=== PATIENT | male | born 1970 | race Caucasian/White ===

== ENCOUNTER 2017-07-11 13:09 | Inpatient (IN) | payer OTHER ==
[2017-07-11] VITALS (7 sets, daily range): BP systolic 156–220; BP diastolic 87–116; PULSE 84–107; RESP 20–26; TEMP 97.8–99.5; O2SAT 95–96
[~2017-07-11] VITALS: Ht 180.3 cm; Wt 181.4 kg
[~2017-07-11 13:09] MED LIST: AMLO10 PO; CLON.2 PO; FURO1TAB93 PO; LISI-360 PO; MEDR4PAK3 PO; OXYC5 PO; PANT40IN3 PO; SHOWER/TUB CHAIR LG; Z.0.WALKERBAR
[2017-07-11] MEDS ORDERED: chlordiazePOXIDE 25 MG CAP PO STA (14:44)
[2017-07-11] MEDS ORDERED: ONDANSETRON HCL 4 MG/2 ML VIAL IVP ONE (14:45)
[2017-07-11] MEDS ORDERED: LORazepam 2 MG/ML VIAL IV PUSH ONE (14:45)
[2017-07-11] MEDS ORDERED: SODIUM CHLORIDE 0.9% FLUSH 10 ML FLUSH IVF PRN (14:45)
[2017-07-11] MEDS ORDERED: PANTOPRAZOLE SODIUM 40 MG VIAL IVP ONE (14:45)
--- NOTE | 2017-07-11 14:55 | PD ---
HPI Chief Complaint: Chest Pain Time Seen by Provider: 14:49 Travel History International Travel<30 days: No Contact w/Intl Traveler<30days: No Traveled to known affect area: No History of Present Illness HPI Patient comes in complaining of left-sided chest pain that is throbbing like in nature began earlier this morning. Patient states that he is an alcoholic drinking 3-6 L of vodka a day. Patient states he use to drink beer by the case , but found out vodka was cheaper to get drunk on. Patient states he was trying to detox himself and last had a drink around noon yesterday. Patient states he started feeling sick and shaky and had his friend get him a pint of vodka which he drank about three quarters of around noon today seemed to help his symptoms some. Patient states over the past 6 months when he doesn't drink a starts getting sick she starts to dry heave and has noticed some blood-tinged spots in the sputum. Patient denies any large amount of blood in the vomit. Patient states that over the past months he said hoop coiler color stools but contributes this to trying to eat more vegetables. Patient reports associated shortness of breath with the chest pain today that is worse with exertion. Patient has a history of hypertension and COPD but denies taking any medications for this. Patient states he did take a Lasix today they had prescribed 6 months ago to help with the swelling in his legs. Patient reports he feels a swelling in his legs getting progressively worse. PFSH Past Medical History Arthritis: Yes Heart Rhythm Problems: No Cancer: No Cardiovascular Problems: Yes High Cholesterol: No Chest Pain: Yes Congestive Heart Failure: Yes Endocrine: No Gastrointestinal Disorders: Yes Genitourinary: No Hypertension: Yes Musculoskeletal: Yes Neurologic: No Psychiatric: No Reproductive: No Respiratory: Yes (COPD) Past Surgical History Other Surgery: Yes Social History Alcohol Use: Yes (1 pint of vodka) Tobacco Use: No Substance Use: Yes (MARIJUANA. ) Allergies-Medications (Allergen,Severity, Reaction): Coded Allergies: lisinopril (Unverified Allergy, Severe, RASHES, 07/11/17) Reported Meds & Prescriptions Reported Meds & Active Scripts Active No Active Prescriptions or Reported Medications Review of Systems Except as stated in HPI: all other systems reviewed are Neg Physical Exam Narrative GENERAL: Well-developed, overly nourished, in no acute distress, and non-ill appearing. SKIN: Focused skin assessment warm and dry. HEAD: Atraumatic. Normocephalic. EYES: Pupils equal and round. EOMI. No scleral icterus. No injection or drainage. ENT: No nasal bleeding or discharge. Mucous membranes pink and moist. NECK: Trachea midline. Supple. No nuclear rigidity. CARDIOVASCULAR: Regular rate and rhythm. No murmur appreciated. RESPIRATORY: No accessory muscle use. No respiratory distress. Decreased breath sounds throughout. GASTROINTESTINAL: Abdomen soft, non-tender, distended, and no guarding. Hepatic and splenic margins not palpable. Normal bowel sounds 4. No pulsatile mass. Umbilical hernia noted. MUSCULOSKELETAL: No obvious deformities. No clubbing. No cyanosis. 2+ edema bilateral lower extremities. Full range of motion. NEUROLOGICAL: Awake and alert. No obvious cranial nerve deficits. Motor grossly within normal limits. Normal speech. PSYCHIATRIC: Appropriate mood and affect; insight and judgment normal. Data Data Last Documented VS Vital Signs Date Time Temp Pulse Resp B/P Pulse Ox O2 Delivery O2 Flow Rate FiO2 07/11/17 16:05 85 21 173/93 96 Nasal Cannula 2 07/11/17 14:53 98.3 Orders Electrocardiogram (07/11/17 ) B-Type Natriuretic Peptide (07/11/17 14:44) Ckmb (Isoenzyme) Profile (07/11/17 14:44) Complete Blood Count With Diff (07/11/17 14:44) Magnesium (Mg) (07/11/17 14:44) Prothrombin Time / Inr (Pt) (07/11/17 14:44) Act Partial Throm Time (Ptt) (07/11/17 14:44) Troponin I (07/11/17 14:44) Chest, Single Ap (07/11/17 14:44) Ecg Monitoring (07/11/17 14:44) Bilateral Bp Monitoring (07/11/17 14:44) Iv Access Insert/Monitor (07/11/17 14:44) Oximetry (07/11/17 14:44) Oxygen Administration (07/11/17 14:44) Sodium Chloride 0.9% Flush (Ns Flush) (07/11/17 14:45) Comprehensive Metabolic Panel (07/11/17 14:44) Lipase (07/11/17 14:44) Alcohol (Ethanol) (07/11/17 14:44) Ondansetron Inj (Zofran Inj) (07/11/17 14:45) Pantoprazole Inj (Protonix Inj) (07/11/17 14:45) Chlordiazepoxide (Librium) (07/11/17 14:44) Lorazepam Inj (Ativan Inj) (07/11/17 14:45) CKMB (07/11/17 15:00) CKMB% (07/11/17 15:00) Admit Order (Ed Use Only) (07/11/17 18:10) Labs Laboratory Tests Test 07/11/17 15:00 White Blood Count 5.7 TH/MM3 Red Blood Count 4.13 MIL/MM3 Hemoglobin 14.2 GM/DL Hematocrit 42.3 % Mean Corpuscular Volume 102.4 FL Mean Corpuscular Hemoglobin 34.4 PG Mean Corpuscular Hemoglobin 33.6 % Concent Red Cell Distribution Width 13.0 % Platelet Count 119 TH/MM3 Mean Platelet Volume 8.7 FL Neutrophils (%) (Auto) 76.2 % Lymphocytes (%) (Auto) 14.7 % Monocytes (%) (Auto) 7.6 % Eosinophils (%) (Auto) 0.9 % Basophils (%) (Auto) 0.6 % Neutrophils # (Auto) 4.3 TH/MM3 Lymphocytes # (Auto) 0.8 TH/MM3 Monocytes # (Auto) 0.4 TH/MM3 Eosinophils # (Auto) 0.1 TH/MM3 Basophils # (Auto) 0.0 TH/MM3 CBC Comment DIFF FINAL Differential Comment Prothrombin Time 11.4 SEC Prothromb Time International 1.0 RATIO Ratio Activated Partial 29.8 SEC Thromboplast Time Sodium Level 139 MEQ/L Potassium Level 3.4 MEQ/L Chloride Level 103 MEQ/L Carbon Dioxide Level 26.8 MEQ/L Anion Gap 9 MEQ/L Blood Urea Nitrogen 7 MG/DL Creatinine 0.80 MG/DL Estimat Glomerular Filtration 104 ML/MIN Rate Random Glucose 81 MG/DL Calcium Level 8.2 MG/DL Magnesium Level 1.8 MG/DL Total Bilirubin 1.8 MG/DL Aspartate Amino Transf 105 U/L (AST/SGOT) Alanine Aminotransferase 81 U/L (ALT/SGPT) Alkaline Phosphatase 82 U/L Total Creatine Kinase 386 U/L Creatine Kinase MB 5.1 NG/ML Creatine Kinase MB % 1.3 % Troponin I 0.05 NG/ML B-Type Natriuretic Peptide 15 PG/ML Total Protein 8.6 GM/DL Albumin 3.9 GM/DL Lipase 69 U/L Ethyl Alcohol Level 129 MG/DL MDM Medical Decision Making Medical Screen Exam Complete: Yes Emergency Medical Condition: Yes Interpretation(s) EKG reviewed by Dr. Hernandez shows sinus rhythm with ventricular rate of 83. No STEMI. Chest x-ray read by the radiologist shows: Mild cardiomegaly. No acute abnormality. Differential Diagnosis CHF exacerbation, COPD exacerbation. Acute coronary syndrome, GI bleed, electrolyte abnormality, alcohol detox, alcohol withdrawal, pneumonia, pneumothorax, pancreatitis, other Narrative Course Patient seen and examined. IV was established patient's patient property assessment monitor. Patient was given Librium and Ativan for alcohol withdrawal symptoms. Initial laboratory neurological studies were ordered. Discussed patient with Dr. Hernandez, who recommends holding aspirin at this time secondary to possible upper GI bleed. Will await laboratory findings. 1610 patient reassessed resting comfortably in bed in no acute distress. Vital signs are stable. Labs pending. Discussed all findings and plan care of with patient, who reports symptoms improve some after receiving Librium and Ativan. Patient is agreeable for admission for further evaluation of his chest pain. All questions were answered. Physician Communication Physician Communication [id number] Aguilera resident on-call for Dr. Alan, who is agreeable to admit the patient. Diagnosis Primary Impression: Chest pain Qualified Code: R07.9 - Chest pain, unspecified type Additional Impressions: Alcoholism, chronic Alcohol withdrawal Qualified Code: F10.230 - Alcohol withdrawal syndrome without complication Admitting Information Admitting Physician Requests: Observation Scripts No Active Prescriptions or Reported Meds Condition: Stable Anderson Marks Jul 11, 2017 14:55
--- NOTE | 2017-07-11 15:33 | RADRPT ---
EXAM DATE/TIME: 07/11/2017 15:10 [facility] COMPARISON: CHEST SINGLE AP, August 15, 2016, 22:05. INDICATIONS : Chest pain. MEDICAL HISTORY : Congestive heart failure. Chronic obstructive pulmonary disease. SURGICAL HISTORY : None. ENCOUNTER: Initial ACUITY: 1 day PAIN SCORE: 5/10 LOCATION: Bilateral chest FINDINGS: The heart is enlarged. The pulmonary parenchyma is clear. The bony structures are grossly intact. CONCLUSION: 1. Mild cardiomegaly. No acute abnormality. Uliecs Cabello MD on July 11, 2017 at 15:31 Board Certified Radiologist. This report was verified electronically.
[2017-07-11 16:10] LABS: AUTOMATED NEUTROPHIL # 4.3 TH/MM3 (1.8-7.7); BASOPHIL % 0.6 % (0.0-2.0); EOSINOPHIL # 0.1 TH/MM3 (0-0.4); EOSINOPHIL % 0.9 % (0.0-4.0); HEMATOCRIT 42.3 % (39.0-51.0); HEMO FLAGS DIFF FINAL; LYMPH % 14.7 % (9.0-44.0); LYMPHOCYTE # 0.8 TH/MM3 (1.0-4.8); MEAN CELL VOLUME 102.4 FL (80.0-100.0); MEAN CORPUSCULAR HEMOGLOBIN 34.4 PG (27.0-34.0); MEAN CORPUSCULAR HGB CONC 33.6 % (32.0-36.0); MONO % 7.6 % (0.0-8.0); NEUT % 76.2 % (16.0-70.0); PLATELET COUNT 119 TH/MM3 (150-450); RED BLOOD COUNT 4.13 MIL/MM3 (4.50-5.90); WHITE BLOOD COUNT 5.7 TH/MM3 (4.0-11.0)
[2017-07-11 16:19] LABS: APTT (PATIENT) 29.8 SEC (24.3-30.1); PROTHROMBIN TIME - PATIENT 11.4 SEC (9.8-11.6)
[2017-07-11 16:32] LABS: ANION GAP 9 MEQ/L (5-15); AST (GOT) 105 U/L (15-37); BICARBONATE 26.8 MEQ/L (21.0-32.0); BLOOD UREA NITROGEN 7 MG/DL (7-18); CHLORIDE 103 MEQ/L (98-107); GLOMERULAR FILTRATION RATE 104 ML/MIN (>89); MAGNESIUM 1.8 MG/DL (1.5-2.5); POTASSIUM 3.4 MEQ/L (3.5-5.1); SODIUM (NA) 139 MEQ/L (136-145)
[2017-07-11 16:33] LABS: ALT (GPT) 81 U/L (12-78)
[2017-07-11 16:36] LABS: ALKALINE PHOSPHATASE 82 U/L (45-117); CREATINE KINASE 386 U/L (39-308); TOTAL BILIRUBIN ADULT 1.8 MG/DL (0.2-1.0)
[2017-07-11 16:38] LABS: ALCOHOL 129 MG/DL (0-5)
[2017-07-11 16:51] LABS: CKMB 5.1 NG/ML (0.5-3.6)
[2017-07-11] MEDS ORDERED: SODIUM CHLORIDE 0.9% FLUSH 10 ML FLUSH IV FLUSH PRN ×2 (18:45→19:15)
--- NOTE | 2017-07-11 19:02 | HHI.HP ---
HPI Service Family Medicine Primary Care Physician No Primary Care Physician Admission Diagnosis chest pain, alcohol withdrawal symptoms Diagnoses: International Travel<30 Days: No Contact w/Intl Traveler<30days: No Known Affected Area: No History of Present Illness Mr. Cabrera is a 46 y/o M with a PMHx of alcoholism, CHF, and HTN presents to the ER with chest pain. He states that the pain has been throbbing since this morning and rates the pain at an 8/10 on the pain scale. He reports that he has had a "mild heart attack," but the pain today is much worse. The pain is primarily located on the left side and feels like a "throbbing pressure." He endorses some blurry vision, headaches, dizziness, and intermittent palpitations. Of note he has an extensive alcohol abuse history including a hospitalization of approximately 2 months due to severe alcohol withdrawal. During his hospitalization he suffered a tonic-clonic seizures and required intubation/tracheotomy due to respiratory failure during his withdrawal. Currently he reports that he drinks 4-5 L of vodka or 99 proof alcohol per day. Today he has had approximately 3/4 of a pint of vodka prior to presenting to the emergency department. Patient states that he is worried that he is going into withdrawal now and knows that his anger control can become a problem when he withdraws from alcohol. His only other complaint is shortness of breath which he states started approximately 8 months ago. His shortness of breath is exacerbated by exertion and is so debilitating he has not been leaving his house for at least 6 months. Over this time he states that he has had a productive cough with white sputum and occasional red/brown specks of blood. He does use a CPAP machine at night, however he is unaware of his settings. Otherwise he has no complaints and denies any fevers, chills, shortness of breath, chest pain, NVD, abdominal pain, or calf tenderness. Review of Systems Constitutional: DENIES: Fever, Dizziness Eyes: COMPLAINS OF: Blurred vision Ears, nose, mouth, throat: DENIES: Throat pain Respiratory: COMPLAINS OF: Cough, Shortness of breath Cardiovascular: COMPLAINS OF: Chest pain, Dyspnea on Exertion, DENIES: Palpitations Gastrointestinal: COMPLAINS OF: Abdominal pain, Diarrhea, Nausea, Vomiting Genitourinary: COMPLAINS OF: Dysuria Musculoskeletal: COMPLAINS OF: Joint pain, Back pain Integumentary: COMPLAINS OF: Rash Neurologic: COMPLAINS OF: Headache Psychiatric: COMPLAINS OF: Mood changes Past Family Social History Past Medical History Hypertension CHF Low back pain Asthma Sleep apnea Past Surgical History Tracheostomy Back surgery Neck surgery for fractured vertebrae Allergies: Coded Allergies: lisinopril (Unverified Allergy, Severe, RASHES, 07/11/17) Family History Father - unknown Mother - leukemia and was a heavy smoker Sister - PE Social History Lives in [place] by himself and dog. 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 Tobacco - denies history Alcohol - normal day has a minimum of 3L of vodka or 99 proof liquor up to 5L of the same, today had 3/4 of a bottle of vodka Illicit - Marijuana, lasted used 1 month ago, was using all day prior Physical Exam Vital Signs Vital Signs Date Time Temp Pulse Resp B/P Pulse Ox O2 Delivery O2 Flow Rate FiO2 07/11/17 16:05 85 21 173/93 96 Nasal Cannula 2 07/11/17 14:53 98.3 84 21 180/99 95 Room Air 196/116 07/11/17 14:51 95 Room Air 07/11/17 14:51 98.3 84 21 180/99 95 Room Air 07/11/17 14:37 83 21 95 Room Air 07/11/17 13:11 97.8 107 26 220/108 95 Physical Exam GENERAL: Well-nourished, well-developed morbidly obese male lying in bed in mild distress. SKIN: Warm and dry. Left hand with mild swelling and increased pigmentation secondary to suntan. HEENT: Atraumatic, normocephalic with EOMI. PERRLA. Oropharynx clear with no erythema or exudate. No rhinorrhea. No LAD, JVD, or thyroid abnormality appreciated. CARDIOVASCULAR: Regular rate and rhythm without obvious murmurs, gallops, or rubs. RESPIRATORY: Breath sounds equal bilaterally. No increased work of breathing. Crackles at the bilateral bases. GASTROINTESTINAL: Abdomen soft, distended, and mildly tender to palpation in all 4 quadrants. Positive bowel sounds in all 4 quadrants. Umbilical hernia at the midline. No other masses appreciated. MUSCULOSKELETAL: No cyanosis or edema. Strength grossly WNL. 2+ pitting edema of the bilateral lower extremities. NEURO/PSYCH: Afocal. Awake, alert, and oriented x3. Appropriate speech and interaction with examiner. Moderate tremor upon standing bilateral hands. Laboratory Laboratory Tests Test 07/11/17 15:00 White Blood Count 5.7 Red Blood Count 4.13 Hemoglobin 14.2 Hematocrit 42.3 Mean Corpuscular Volume 102.4 Mean Corpuscular Hemoglobin 34.4 Mean Corpuscular Hemoglobin 33.6 Concent Red Cell Distribution Width 13.0 Platelet Count 119 Mean Platelet Volume 8.7 Neutrophils (%) (Auto) 76.2 Lymphocytes (%) (Auto) 14.7 Monocytes (%) (Auto) 7.6 Eosinophils (%) (Auto) 0.9 Basophils (%) (Auto) 0.6 Neutrophils # (Auto) 4.3 Lymphocytes # (Auto) 0.8 Monocytes # (Auto) 0.4 Eosinophils # (Auto) 0.1 Basophils # (Auto) 0.0 CBC Comment DIFF FINAL Differential Comment Prothrombin Time 11.4 Prothromb Time International 1.0 Ratio Activated Partial 29.8 Thromboplast Time Sodium Level 139 Potassium Level 3.4 Chloride Level 103 Carbon Dioxide Level 26.8 Anion Gap 9 Blood Urea Nitrogen 7 Creatinine 0.80 Estimat Glomerular Filtration 104 Rate Random Glucose 81 Calcium Level 8.2 Magnesium Level 1.8 Total Bilirubin 1.8 Aspartate Amino Transf 105 (AST/SGOT) Alanine Aminotransferase 81 (ALT/SGPT) Alkaline Phosphatase 82 Total Creatine Kinase 386 Creatine Kinase MB 5.1 Creatine Kinase MB % 1.3 Troponin I 0.05 B-Type Natriuretic Peptide 15 Total Protein 8.6 Albumin 3.9 Lipase 69 Ethyl Alcohol Level 129 Result Diagram: 07/11/17 1500 07/11/17 1500 Imaging Last 72 hours Impressions Chest X-Ray 07/11/17 1444 Signed Impressions: Service Date/Time: Tuesday, July 11, 2017 15:10 - CONCLUSION: 1. Mild cardiomegaly. No acute abnormality. Ulices Cabello MD Abdomen Ultrasound 07/11/17 0000 Signed Impressions: Service Date/Time: Tuesday, July 11, 2017 19:54 - CONCLUSION: 1. Nonspecific splenomegaly, appears to be increased. 2. Enlarged and fatty infiltrated liver. Duran Kessler MD Assessment and Plan Assessment and Plan Mr. Cabrera is a 46 y/o M with a PMHx of alcoholism, CHF, and HTN presents to the ER with chest pain and alcohol withdrawal. Code Status FULL CODE Discussed Condition With JUNI Bell Problem List: (1) Alcohol withdrawal Status: Acute Plan: Patient with long history of alcohol abuse and prior hospitalization for withdrawal. Currently presenting in withdrawal. Patient admits to drinking 4-5 L of vodka per day. CIWA Ativan per protocol Continue to monitor, low threshold to consult draw furnace tender/transfer to ICU for further monitoring and possible Precedex drip. Indicated Librium given once in ER Rally pack ordered (2) Chest pain Status: Acute Plan: Patient admitted for acute onset of chest pain with prior history of CT EKG: Normal sinus rhythm with heart rate of 83. Normal intervals. No signs of ST depression/elevation or bundle sonia block. Per medical team.. Repeat 2 Troponins: 0.05, 2 pending CK: 386, 2 pending Nitroglycerin when necessary for chest pain (3) CHF exacerbation Status: Acute Plan: Patient with history of CHF presenting with increasing shortness of breath and increasing peripheral edema Chest x-ray: Mild cardiomegaly, no acute abnormality Repeat echocardiogram ordered, previous echo showed an EF of 55-65% with no regional wall abnormalities. (06/2016) BMP: 15 Lasix 40 mg IV given once in ER Incentive spirometer DuoNeb nebs when necessary for shortness of breath (4) Elevated liver enzymes Status: Acute Plan: Patient being admitted with elevated AST and ALT complaining of abdominal pain with history of ascites concerning for possible SBP per EMR Complete abdominal ultrasound: Nonspecific splenomegaly, appears to be increased. Enlarged and fatty liver infiltration. Lasix 40 mg IV given once in ER Hepatitis profile ordered (5) Sleep apnea Status: Chronic Plan: Patient with history of sleep apnea currently using CPAP machine to sleep , however he does not remember his [place] CPAP ordered (6) Nutrition, metabolism, and development symptoms Status: Acute Plan: Diet: Heart healthy diet with 1500 mL fluid restriction and 2 g sodium restriction Fluids: Tolerated by mouth, currently in overload prior exam Electrolytes: Hypokalemia, replaced Prophylaxis: Clonidine when necessary for blood pressure greater than 180/100, DuoNeb when necessary for shortness of breath/wheezing (7) No contraindication to deep vein thrombosis (DVT) prophylaxis Status: Acute Plan: Heparin 5000 units every 8 hours SCD/TEDs Physician Certification 2 Midnight Certification Type: Admission for Inpatient Services Order for Inpatient Services The services are ordered in accordance with Medicare regulations or non- Medicare payer requirements, as applicable. In the case of services not specified as inpatient-only, they are appropriately provided as inpatient services in accordance with the 2-midnight benchmark. Estimated LOS (days): 3 3 days is the estimated time the patient will need to remain in the hospital, assuming treatment plan goals are met and no additional complications. Post-Hospital Plan: Home Problem Qualifiers (1) Alcohol withdrawal: Qualified Code: F10.230 - Alcohol withdrawal syndrome without complication (2) Chest pain: Qualified Code: R07.9 - Chest pain, unspecified type Malachi Aguilera MD R2 Jul 11, 2017 19:02
[2017-07-11] MEDS ORDERED: ACETAMINOPHEN 500 MG CPLT PO PRN (19:15)
[2017-07-11] MEDS ORDERED: ONDANSETRON HCL 4 MG/2 ML VIAL IV PRN (19:15)
[2017-07-11] MEDS ORDERED: LORazepam 2 MG/ML VIAL IV PUSH PRN ×3 (19:15)
[2017-07-11] MEDS ORDERED: RESP: ALBUTEROL 2.5 MG/IPRATROPIUM 0.5 MG NEB (PRN) NEB (19:15)
[2017-07-11] MEDS ORDERED: POTASSIUM CHLORIDE 10 MEQ CONTROLLED RELEASE TAB PO ONE (19:15)
[2017-07-11] MEDS ORDERED: FLUMAZENIL 0.5 MG/5 ML VIAL IV PUSH PRN (19:15)
[2017-07-11] MEDS ORDERED: THIAMINE HCL 100 MG TAB PO SCH (19:15)
[2017-07-11] MEDS ORDERED: NITROGLYCERIN 0.4 MG SL 25 TABS/BTL SL PRN (19:15)
[2017-07-11] MEDS ORDERED: HALOPERIDOL LACTATE 5 MG/ML AMP IM PRN (19:15)
[2017-07-11] MEDS ORDERED: LORazepam 2 MG TAB PO PRN (19:15)
[2017-07-11] MEDS ORDERED: FUROSEMIDE 40 MG/4 ML VIAL IV PUSH ONE (19:15)
--- NOTE | 2017-07-11 20:31 | RADRPT ---
EXAM DATE/TIME: 07/11/2017 19:54 [facility] COMPARISON: US ABDOMEN - COMPLETE, March 29, 2015, 18:41. CT PULMONARY ANGIOGRAM, July 10, 2016, 11:09. ABDOMEN KUB ONLY, July 15, 2016, 7:40. INDICATIONS : Abdominal pain. MEDICAL HISTORY : Chronic obstructive pulmonary disease. Congestive heart failure. Hypertension. Dysuria. Arthri tis. Liver disease. Depression. Alcohol use. SURGICAL HISTORY : C6 surgery. ENCOUNTER: Initial ACUITY: 4-6 months PAIN SCORE: 0/10 LOCATION: Abdomen. MEASUREMENTS: LIVER: COMMON DUCT: Non-visualized RIGHT KIDNEY: 10.4 x 5.7 x 5.2 cm LEFT KIDNEY: 13.1 x 7.7 x 6.1 cm SPLEEN: 21.0 cm length NOT VISUALIZED. cm maximal FINDINGS: LIVER: Enlarged and fatty infiltrated. No focal hepatic lesion seen. COMMON DUCT: No intraluminal mass or stone visualized. GALLBLADDER: Contains no stones, demonstrates no wall thickening or pericholecystic fluid. PANCREAS: The visualized portions are within normal limits. RIGHT KIDNEY: No hydronephrosis, stone or mass. LEFT KIDNEY: No hydronephrosis, stone or mass. SPLEEN: No focal lesion. AORTA: Non aneurysmal. IVC: Within normal limits. CONCLUSION: 1. Nonspecific splenomegaly, appears to be increased. 2. Enlarged and fatty infiltrated liver. Duran Kessler MD on July 11, 2017 at 20:27 Board Certified Radiologist. This report was verified electronically.
[2017-07-11] MEDS: MULTIVITAMINS/MINERALS THERAPEUTIC TAB PO SCH (20:47)
[2017-07-11] MEDS: FOLIC ACID 1 MG TAB PO SCH (20:47)
[2017-07-11] MEDS: THIAMINE INJ 500 MG in SODIUM CHLOR 0.9% 250 ML INJ 250 ML IV SCH (20:48)
[2017-07-11] MEDS: SODIUM CHLORIDE 0.9% FLUSH 10 ML FLUSH IV FLUSH SCH (20:48)
[2017-07-11] MEDS ORDERED: SODIUM CHLORIDE 0.9% FLUSH 10 ML FLUSH IV FLUSH SCH (21:00)
[2017-07-11] MEDS: FAMOTIDINE 20 MG TAB PO SCH (21:32)
[2017-07-11] MEDS: HEPARIN SODIUM - SQ 10,000 UNITS/ML VIAL SQ SCH (21:32)
[2017-07-11] MEDS: LORazepam 2 MG/ML VIAL IV PUSH PRN (22:04)
[2017-07-11 22:10] LABS: CKMB 4.9 NG/ML (0.5-3.6)
[2017-07-12] VITALS (8 sets, daily range): BP systolic 136–206; BP diastolic 75–96; PULSE 70–90; RESP 16–20; TEMP 96.4–98.8; O2SAT 90–99
[2017-07-12] MEDS: cloNIDine HCL 0.1 MG TAB PO PRN (00:42)
[2017-07-12] MEDS: LORazepam 2 MG/ML VIAL IV PUSH PRN ×2 (02:14→08:45)
[2017-07-12] MEDS ORDERED: cloNIDine HCL 0.1 MG TAB PO ONE (02:15)
[2017-07-12] MEDS: HEPARIN SODIUM - SQ 10,000 UNITS/ML VIAL SQ SCH ×3 (03:28→21:39)
[2017-07-12 03:53] LABS: AUTOMATED NEUTROPHIL # 3.7 TH/MM3 (1.8-7.7); BASOPHIL # 0.1 TH/MM3 (0-0.2); BASOPHIL % 1.2 % (0.0-2.0); EOSINOPHIL # 0.1 TH/MM3 (0-0.4); EOSINOPHIL % 2.2 % (0.0-4.0); HEMATOCRIT 39.3 % (39.0-51.0); HEMO FLAGS DIFF FINAL; LYMPH % 12.7 % (9.0-44.0); LYMPHOCYTE # 0.6 TH/MM3 (1.0-4.8); MEAN CELL VOLUME 102.1 FL (80.0-100.0); MEAN CORPUSCULAR HGB CONC 34.3 % (32.0-36.0); MONO % 9.3 % (0.0-8.0); NEUT % 74.6 % (16.0-70.0); PLATELET COUNT 101 TH/MM3 (150-450); RED BLOOD COUNT 3.85 MIL/MM3 (4.50-5.90); RED CELL DISTRIBUTION WIDTH 13.1 % (11.6-17.2); WHITE BLOOD COUNT 4.9 TH/MM3 (4.0-11.0)
[2017-07-12 03:57] LABS: INTERNATIONAL NORMALIZED RATIO 1.1 RATIO; PROTHROMBIN TIME - PATIENT 11.9 SEC (9.8-11.6)
[2017-07-12] MEDS ORDERED: FURO40TA PO (04:11)
[2017-07-12] MEDS ORDERED: PANT40TA3 PO (04:11)
[2017-07-12] MEDS ORDERED: AMLO10 PO (04:11)
[2017-07-12 04:18] LABS: ALT (GPT) 68 U/L (12-78); ANION GAP 3 MEQ/L (5-15); AST (GOT) 81 U/L (15-37); BICARBONATE 33.9 MEQ/L (21.0-32.0); BLOOD UREA NITROGEN 10 MG/DL (7-18); CHLORIDE 101 MEQ/L (98-107); GLOMERULAR FILTRATION RATE 84 ML/MIN (>89); SODIUM (NA) 138 MEQ/L (136-145)
[2017-07-12 04:22] LABS: ALKALINE PHOSPHATASE 75 U/L (45-117); TOTAL BILIRUBIN ADULT 2.5 MG/DL (0.2-1.0)
[2017-07-12] MEDS: THIAMINE INJ 500 MG in SODIUM CHLOR 0.9% 250 ML INJ 250 ML IV SCH ×3 (05:00→23:35)
[2017-07-12] MEDS ORDERED: RESP: ALBUTEROL 2.5 MG/IPRATROPIUM 0.5 MG NEB (PRN) NEB (07:00)
[2017-07-12 07:35] LABS: CKMB 4.1 NG/ML (0.5-3.6)
[2017-07-12] MEDS ORDERED: AMLO5 PO (07:46)
[2017-07-12] MEDS: amLODIPine BESYLATE 5 MG TAB PO SCH (08:45)
[2017-07-12] MEDS: SODIUM CHLORIDE 0.9% FLUSH 10 ML FLUSH IV FLUSH SCH ×2 (08:45→21:49)
[2017-07-12] MEDS: MULTIVITAMINS/MINERALS THERAPEUTIC TAB PO SCH (08:45)
[2017-07-12] MEDS: FAMOTIDINE 20 MG TAB PO SCH ×2 (08:45→21:39)
[2017-07-12] MEDS: FOLIC ACID 1 MG TAB PO SCH (08:45)
--- NOTE | 2017-07-12 10:49 | HHI.DCPOC ---
Discharge Care Plan Diagnosis: (1) Alcohol abuse (2) Alcohol withdrawal (3) Chest pain (4) Elevated blood pressure, situational Goals to Promote Your Health * To prevent worsening of your condition and complications * To maintain your health at the optimal level Directions to Meet Your Goals Take your medications as prescribed Follow your dietary instruction Follow activity as directed Keep your appointments as scheduled Take your immunizations and boosters as scheduled If your symptoms worsen call your PCP, if no PCP go to Urgent Care Center or Emergency Room Smoking is Dangerous to Your Health. Avoid second hand smoke Call the 24-hour hour crisis hotline for domestic abuse at Julius Cortes MD R3 Jul 12, 2017 10:49
--- NOTE | 2017-07-12 11:46 | HHI.FPPN ---
Subjective Remarks Medicine attending note: Patient seen and examined, 46-year-old gentleman who states that he does have history of increased alcohol usage presented to the emergency room with an episode of chest pressure with diaphoresis and a feeling of disorientation. Patient admitted for evaluation of chest pain and the patient stated that he would like to be detoxed for his alcohol. Currently does not have insurance. 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 History of a "heart attack " approximately a year ago. 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 Refer to resident's history and physical for complete discussion of admitting details. Does have a history of obstructive sleep apnea and also his head some shortness of breath not fully explained over the last 1-2 years. Objective Vitals Vital signs noted. Some lability to her blood pressure, initially on presentation hypertensive to 220/108. Gen. appearance: Obese gentleman who is pleasant conversation, oriented and in no acute distress. HEENT: Grossly nonlocalizing. Neck: Increased adiposity, no bruits. Cardiac: S1-S2, no S3 or murmurs. Lungs: Diminished breath sounds clear. Abdomen protuberant: Soft, nontender, difficult to appreciate organomegaly or masses. Extremities: Reflected obesity, intact pedal pulses, extremities are warm and dry. Initial EKG: Diminished voltage, poor R-wave anteriorly area Troponin: Borderline 0.06. Vital Signs Date Time Temp Pulse Resp B/P Pulse Ox O2 Delivery O2 Flow Rate FiO2 07/12/17 09:00 98 BiPAP 40 07/12/17 09:00 98 40 07/12/17 08:00 96.4 88 16 141/86 90 07/12/17 04:00 98.8 83 16 176/84 98 07/12/17 02:01 98.2 90 20 206/96 99 07/12/17 01:40 99 40 07/12/17 01:35 Bi-Pap 07/11/17 22:36 99.5 105 20 156/87 95 07/11/17 21:49 Nasal Cannula 3.00 07/11/17 21:47 100 20 175/90 95 Nasal Cannula 3 07/11/17 19:19 95 20 178/97 95 Nasal Cannula 3 07/11/17 16:05 85 21 173/93 96 Nasal Cannula 2 07/11/17 14:53 98.3 84 21 180/99 95 Room Air 196/116 07/11/17 14:51 95 Room Air 07/11/17 14:51 98.3 84 21 180/99 95 Room Air 07/11/17 14:37 83 21 95 Room Air 07/11/17 13:11 97.8 107 26 220/108 95 I/O 07/11/17 07/11/17 07/11/17 07/12/17 07/12/17 07/12/17 06:59 14:59 22:59 06:59 14:59 22:59 Intake Total 360 ml Output Total 1800 ml 400 ml Balance -1800 ml -40 ml Intake Oral 360 ml Output Urine Total 1800 ml 400 ml # Voids 1 Result Diagram: 07/12/17 0338 07/12/17 0338 A/P Assessment and Plan Clinical assessment complex 46-year-old woman with a disease of alcohol/ substance abuse admitted with chest pain suggestive of an ischemic origin, history of an AK approximately one year ago by history. [facility] records were searched in [place], cannot definitely find evidence of having been hospitalized at this institution with a documented AK. Will go on the patient' s history that there was an event. Initially plans have been made to discharge the patient home after early on evaluation did not suggest cardiac origin however with the return of borderline troponins, slightly elevated CK-MB, history of coronary artery disease and a history of chest pressure on the day prior, decision was made to cancel her planned discharge and have cardiology evaluate the patient prior to discharge plans. Review of the records does indicate the patient had a very complicated admission approximately year ago which did involve alcohol intoxication, he does have a history of DVTs, patient was intubated the time, had a tracheostomy, and prior to the finding of the abnormal labs plans were made for the patient to try to manage and totally taken to bed at [facility] for detox. Patient seen and examined. Case reviewed and discussed with resident team. Agree with plan of care as discussed with me and documented in the resident note. Problem List: (1) Alcohol withdrawal Status: Acute Plan: Patient with long history of alcohol abuse and prior hospitalization for withdrawal. Currently presenting in withdrawal. Patient admits to drinking 4-5 L of vodka per day. CIWA Ativan per protocol Continue to monitor, low threshold to consult animal herder/transfer to ICU for further monitoring and possible Precedex drip. Indicated Librium given once in ER Rally pack ordered (2) Chest pain Status: Acute Plan: Patient admitted for acute onset of chest pain with prior history of AK EKG: Normal sinus rhythm with heart rate of 83. Normal intervals. No signs of ST depression/elevation or bundle sonia block. Per medical team.. Repeat 2 Troponins: 0.05, 2 pending CK: 386, 2 pending Nitroglycerin when necessary for chest pain (3) CHF exacerbation Status: Acute Plan: Patient with history of CHF presenting with increasing shortness of breath and increasing peripheral edema Chest x-ray: Mild cardiomegaly, no acute abnormality Repeat echocardiogram ordered, previous echo showed an EF of 55-65% with no regional wall abnormalities. (06/2016) BMP: 15 Lasix 40 mg IV given once in ER Incentive spirometer DuoNeb nebs when necessary for shortness of breath (4) Elevated liver enzymes Status: Acute Plan: Patient being admitted with elevated AST and ALT complaining of abdominal pain with history of ascites concerning for possible SBP per EMR Complete abdominal ultrasound: Nonspecific splenomegaly, appears to be increased. Enlarged and fatty liver infiltration. Lasix 40 mg IV given once in ER Hepatitis profile ordered (5) Sleep apnea Status: Chronic Plan: Patient with history of sleep apnea currently using CPAP machine to sleep , however he does not remember his [place] CPAP ordered (6) Nutrition, metabolism, and development symptoms Status: Acute Plan: Diet: Heart healthy diet with 1500 mL fluid restriction and 2 g sodium restriction Fluids: Tolerated by mouth, currently in overload prior exam Electrolytes: Hypokalemia, replaced Prophylaxis: Clonidine when necessary for blood pressure greater than 180/100, DuoNeb when necessary for shortness of breath/wheezing (7) No contraindication to deep vein thrombosis (DVT) prophylaxis Status: Acute Plan: Heparin 5000 units every 8 hours SCD/TEDs Problem Qualifiers (1) Alcohol withdrawal: Qualified Code: F10.230 - Alcohol withdrawal syndrome without complication (2) Chest pain: Qualified Code: R07.9 - Chest pain, unspecified type Arik Alan MD Jul 12, 2017 11:46
--- NOTE | 2017-07-12 15:14 | MB ---
cc: TERELL SANTANA MD DATE OF CONSULTATION 07/12/17 REASON FOR CONSULTATION Elevated troponin and atypical chest pain. HISTORY OF PRESENT ILLNESS The patient is a pleasant though troubled 46-year-old gentleman with a history of alcohol abuse and noncompliance who presented with chest pressure. His cardiac enzymes were minimally elevated and thus I was consulted. He says he is still feeling vague central chest discomfort as well as dyspnea on exertion. Of note, the patient is about 400 pounds and has been gaining weight steadily. He also has been having a great deal of difficulty with his alcoholism. PAST MEDICAL HISTORY Alcohol abuse, morbid obesity, CHF, hypertension, sleep apnea. CURRENT MEDICATIONS 1. Thymine. 2. Amlodipine 5 milligrams daily. 3. Pepcid 20 milligrams daily. 4. Subcu Heparin. 5. Folate. ALLERGIES ALLERGIES ARE LISINOPRIL. PHYSICAL EXAMINATION VITAL SIGNS: Afebrile, pulse 70, respiratory rate 16, BP 158/77 down from 206/96, satting 94% on 4% FIO2. GENERAL: Pleasant morbidly obese gentleman in no distress. NECK: Difficult exam due to body habitus. LUNGS: Back, decreased breath sounds in all owens. CARDIOVASCULAR: Regular rate, rhythm. Distant heart sounds due to body habitus. ABDOMEN: Benign. EXTREMITIES: 2+ chronic pitting edema. LABORATORY DATA White count 4.9, hematocrit 39.3, platelets 101. Sodium 138, potassium 4.0, chloride 101, bicarb 33.9, BUN 10, creatinine 0.96. Troponins are flat at 0.06. CK-MB percentages are in normal range despite minimal elevation in the total CKs. CARDIOLOGY STUDIES EKG showed sinus rhythm without any acute ST or T-wave changes. ASSESSMENT/PLAN 1. Atypical chest pain. The patient's chest pain is fairly vague and his troponins are flat at 0.06. His CK MBs are only slightly up but so are the total CKs. The CK-MB percentages are normal indicating a standard skeletal muscle injury pattern. His weight is going to be a complicating factor for any diagnostic studies as it is about 400 pounds. I will attempt to have him undergo a nuclear stress test but this may not be feasible. I do not believe his current signs and symptoms are enough to go straight to cardiac catheterization but he may also be too heavy to be placed on the cardiac catheterization table. Regardless, given his severe alcoholism and history of noncompliance he is likely not a candidate for the invasive medical procedure. Regardless, I would like to nuclear stress test to help risk stratify him because perhaps if there was severe ischemia we could consider other options. Further recommendations will be based on his clinical course. Thank you again for the opportunity to participate in this patient's care. Terell Santana MD [facility] /2:14 PM /3:00 PM
[2017-07-12] MEDS: LORazepam 1 MG TAB PO PRN ×2 (15:37→21:39)
--- NOTE | 2017-07-12 16:10 | EKG ---
Date Performed: 07/11/2017 Time Performed: 13:29:01 PTAGE: 46 years EKG: INDETERMINATE AXIS GENERAL LOW QRS VOLTAGE POOR R WAVE PROGRESSION ACROSS PRECORDIUM WHICH IS NONSPECIFIC Since previous tracing, no significant change noted ABNORMAL ECG PREVIOUS TRACING : 07/10/2016 09.30 DOCTOR: Trav Landeros Interpretating Date/Time 07/12/2017 16:08:58
--- NOTE | 2017-07-12 16:10 | EKG ---
Date Performed: 07/11/2017 Time Performed: 20:55:36 PTAGE: 46 years EKG: INDETERMINATE AXIS GENERALIZED LOW VOLTAGE POOR R WAVE PROGRESSION ACROSS PRECORDIUM, WHICH IS NONSPECIFIC Since previous tracing, no significant change noted ABNORMAL ECG PREVIOUS TRACING : 07/11/2017 13.29 DOCTOR: Trav Landeros Interpretating Date/Time 07/12/2017 16:10:01
--- NOTE | 2017-07-12 16:11 | EKG ---
Date Performed: 07/12/2017 Time Performed: 01:43:54 PTAGE: 46 years EKG: Sinus rhythm . Indeterminate axis Poor R wave progression - probable normal variant Low QRS voltages in limb leads Since previous tracing, no significant change noted Borderline ECG PREVIOUS TRACING : 07/11/2017 20.55 DOCTOR: Trav Landeros Interpretating Date/Time 07/12/2017 16:10:24
[2017-07-13] VITALS (9 sets, daily range): BP systolic 149–189; BP diastolic 73–107; PULSE 72–85; RESP 17–21; TEMP 96.7–98.5; O2SAT 91–96
[2017-07-13 04:16] LABS: HEMATOCRIT 37.3 % (39.0-51.0); MEAN CELL VOLUME 102.1 FL (80.0-100.0); MEAN CORPUSCULAR HEMOGLOBIN 35.4 PG (27.0-34.0); MEAN CORPUSCULAR HGB CONC 34.7 % (32.0-36.0); PLATELET COUNT 92 TH/MM3 (150-450); RED BLOOD COUNT 3.65 MIL/MM3 (4.50-5.90); RED CELL DISTRIBUTION WIDTH 12.8 % (11.6-17.2); WHITE BLOOD COUNT 4.6 TH/MM3 (4.0-11.0)
[2017-07-13 04:30] LABS: REVIEW FLAG FINAL
[2017-07-13 04:33] LABS: ANION GAP 8 MEQ/L (5-15); BICARBONATE 28.1 MEQ/L (21.0-32.0); BLOOD UREA NITROGEN 10 MG/DL (7-18); CHLORIDE 103 MEQ/L (98-107); POTASSIUM 3.5 MEQ/L (3.5-5.1); SODIUM (NA) 139 MEQ/L (136-145)
[2017-07-13 04:38] LABS: ALKALINE PHOSPHATASE 70 U/L (45-117); ALT (GPT) 66 U/L (12-78); AST (GOT) 83 U/L (15-37); GLOMERULAR FILTRATION RATE 107 ML/MIN (>89)
[2017-07-13] MEDS: THIAMINE INJ 500 MG in SODIUM CHLOR 0.9% 250 ML INJ 250 ML IV SCH ×3 (05:04→21:39)
[2017-07-13] MEDS: HEPARIN SODIUM - SQ 10,000 UNITS/ML VIAL SQ SCH ×3 (05:04→21:38)
[2017-07-13] MEDS: LORazepam 2 MG/ML VIAL IV PUSH PRN ×2 (05:14→11:32)
[2017-07-13] MEDS ORDERED: REGADENOSON INJ 0.4 MG/5 ML SYR ONE (09:52)
[2017-07-13] MEDS: FOLIC ACID 1 MG TAB PO SCH (11:32)
[2017-07-13] MEDS: MULTIVITAMINS/MINERALS THERAPEUTIC TAB PO SCH (11:32)
[2017-07-13] MEDS: FAMOTIDINE 20 MG TAB PO SCH ×2 (11:32→21:38)
[2017-07-13] MEDS: amLODIPine BESYLATE 5 MG TAB PO SCH (11:32)
[2017-07-13] MEDS: SODIUM CHLORIDE 0.9% FLUSH 10 ML FLUSH IV FLUSH SCH ×2 (11:32→21:38)
--- NOTE | 2017-07-13 11:52 | RADRPT ---
EXAM DATE/TIME: 07/12/2017 15:33 [facility] COMPARISON: No previous studies available for comparison. INDICATIONS : Mid chest pain for one day. Angina. DOSE: 30.1 mCi Tc99m Myoview at stress. 30.3 mCi Tc99m Myoview at rest. 0.4 mg Lexiscan STRESS SYMPTOMS: Throat tightness. EJECTION FRACTION: 46% MEDICAL HISTORY : Hypertension. Congestive heart failure. SURGICAL HISTORY : Tracheostomy. ENCOUNTER: Initial ACUITY: 1 day PAIN SCALE: 5/10 LOCATION: Midsternal chest TECHNIQUE: The patient underwent pharmacologic stress with infusion of prescribed dose. Continuous ECG tracing was monitored during stress. Gated SPECT imaging was performed after stress and conventional SPECT i maging was performed at rest. The examination was performed on a SPECT/CT scanner, both attenuation and non-corrected datasets were reviewed. FINDINGS: DISTRIBUTION: The maximum perfused segment at stress is in the septal wall. PERFUSION STUDY: Small area of mild reversibility on anterior wall. Fixed defect at the apex. GATED STUDY: There is intact wall motion and thickening without hypokinetic or dyskinetic segments. CONCLUSION: 1. Small area of mild reversibility of the anterior wall and could be small area of ischemia. 2. Ejection fraction 46%. RISK CATEGORY: Intermediate (1-3% Annual Mortality Rate) Karl Lima MD on July 13, 2017 at 11:21 Board Certified Radiologist. This report was verified electronically.
--- NOTE | 2017-07-13 13:52 | ECHRPT ---
Indication: chest pain CONCLUSIONS Mildly dilated left ventricle. Mild concentric left ventricular hypertrophy. The left ventricular systolic function is normal with an estimated ejection fraction in the range of 55-60%. There was limited left ventricular wall motion assessment due to poor endocardial visualization. Technically difficult due to morbid obesity. BP: / HR: Rhythm: Sinus MEASUREMENTS (Male / Female) Normal Values Technical Quality:Technically difficult study 2D ECHO LV Diastolic Diameter PLAX 5.1 cm 4.2 - 5.9 / 3.9 - 5.3 cm LV Systolic Diameter PLAX 3.9 cm IVS Diastolic Thickness 1.5 cm 0.6 - 1.0 / 0.6 - 0.9 cm LVPW Diastolic Thickness 0.9 cm 0.6 - 1.0 / 0.6 - 0.9 cm LV Relative Wall Thickness 0.5 RV Internal Dim ED PLAX 2.5 cm DOPPLER Mitral E Point Velocity 92.1 cm/s Mitral A Point Velocity 74.6 cm/s Mitral E to A Ratio 1.2 TR Peak Velocity 157.0 cm/s TR Peak Gradient 10.0 mmHg FINDINGS LEFT VENTRICLE Mildly dilated left ventricle. Mild concentric left ventricular hypertrophy. The left ventricular systolic function is normal with an estimated ejection fraction in the range of 55-60%. There was limited left ventricular wall motion assessment due to poor endocardial visualization. RIGHT VENTRICLE Normal right ventricular size and systolic function. LEFT ATRIUM The left atrial size is normal. RIGHT ATRIUM The right atrium is not well visualized. ATRIAL SEPTUM The interatrial septum not well visualized. AORTA The aortic root and proximal ascending aorta are normal in size on limited imaging. MITRAL VALVE Mitral annular calcification is present. AORTIC VALVE The aortic valve is not well visualized. TRICUSPID VALVE The tricuspid valve is not well visualized. PULMONARY VALVE The pulmonary valve is not well visualized. VESSELS The inferior vena cava is normal in size. PERICARDIUM No pericardial effusion. Terell Santana MD (Electronically Signed) Final Date:13 July 2017 13:51
--- NOTE | 2017-07-13 14:33 | HHI.FPPN ---
Subjective Remarks Patient seen and examined this morning by medical team. No acute events overnight per nursing staff. Patient's blood pressure remains improved from admission ranging from 150/72 to 180/80. Patient has tolerated Ativan per CIWA protocol well and endorses no DT symptoms. This morning his only complaint is shortness of breath and mild "chest numbness." He states that both of these symptoms have improved since his admission, however they remain. He currently is requiring no supplemental oxygen and denies any dizziness, neck/arm pain, headache, or increased work of breathing. He endorses a productive cough with white/clear sputum. Otherwise he has no complaints and denies any fevers, chills , abdominal pain, NVD, or calf tenderness. Objective Vitals Vital Signs Date Time Temp Pulse Resp B/P (MAP) Pulse Ox O2 Delivery O2 Flow Rate FiO2 07/13/17 12:00 97.2 72 19 169/80 (109) 95 07/13/17 08:00 97.2 79 18 180/80 (113) 91 07/13/17 07:50 97.7 79 18 180/80 (113) 91 07/13/17 04:55 96 21 07/13/17 04:00 97.6 85 20 149/73 (98) 96 07/13/17 00:25 98.5 78 18 150/77 (101) 96 07/12/17 20:42 97.2 79 18 136/78 (97) 99 07/12/17 16:00 97.6 82 18 145/75 (98) 92 I/O 07/12/17 07/12/17 07/12/17 07/13/17 07/13/17 07/13/17 07:00 15:00 23:00 07:00 15:00 23:00 Intake Total 360 ml 240 ml Output Total 400 ml 200 ml Balance -40 ml 40 ml Intake Oral 360 ml 240 ml Output Urine Total 400 ml 200 ml # Voids 1 2 3 2 # Bowel Movements 1 0 Result Diagram: 07/13/1730607/13/17306 Objective Remarks GENERAL: Morbidly obese male sitting up in a recliner watching television in no acute distress SKIN: Warm and dry. No obvious rash. HEENT: Atraumatic, normocephalic with EOMI. MMM. Mild scleral injection. No LAD or JVD appreciated. CARDIOVASCULAR: Regular rate and rhythm without obvious murmurs, gallops, or rubs. No S3 appreciated. RESPIRATORY: Diminished breath sounds secondary to body habitus. Poor inspiratory effort. No CRW appreciated. GASTROINTESTINAL: Abdomen protuberant, soft, and nontender with positive bowel sounds. No masses appreciated. MUSCULOSKELETAL: No cyanosis or edema. Strength grossly WNL. NEURO/PSYCH: Afocal. Awake, alert, and oriented x3. Normal speech and judgment. Normal interaction with examiner. A/P Assessment and Plan Clinical assessment complex 46-year-old woman with a disease of alcohol/ substance abuse admitted with chest pain suggestive of an ischemic origin, history of an VT approximately one year ago by history. [facility] [place], cannot definitely find evidence of having been hospitalized at this institution with a documented VT. Will go on the patient' s history that there was an event. Initially plans have been made to discharge the patient home after early on evaluation did not suggest cardiac origin however with the return of borderline troponins, slightly elevated CK-MB, history of coronary artery disease and a history of chest pressure on the day prior, decision was made to cancel her planned discharge and have cardiology evaluate the patient prior to discharge plans. Review of the records does indicate the patient had a very complicated admission approximately year ago which did involve alcohol intoxication, he does have a history of DVTs, patient was intubated the time, had a tracheostomy, and prior to the finding of the abnormal labs plans were made for the patient to try to manage and totally taken to bed at [facility] for detox. Discharge Planning Pending cardiology recommendations s/p echocardiogram and pharmacological stress test Discussed with case management the patient's preference to report to [facility] for detox. Case management to assist patient by contacting [facility] for possible bed availability. Patient states that if a bed is not available, he will report to [place] to live with his sister who will assist him and rehabilitation program. Problem List: (1) Alcohol withdrawal ICD Codes: F10.239 - Alcohol dependence with withdrawal, unspecified Status: Acute Plan: Patient with long history of alcohol abuse and prior hospitalization for withdrawal. Currently presenting in withdrawal. Patient admits to drinking 4-5 L of vodka per day. CIWA Ativan per protocol, scores improving Continue to monitor, low threshold to consult tire buffer/transfer to ICU for further monitoring and possible Precedex drip. Librium given once in ER Rally pack ordered (2) Chest pain ICD Codes: R07.9 - Chest pain, unspecified Status: Acute Plan: Patient admitted for acute onset of chest pain with prior history of VT EKG: Normal sinus rhythm with heart rate of 83. Normal intervals. No signs of ST depression/elevation or bundle sonia block. Per medical team.. Repeat 2 -Troponins: 0.05, 0.06, 0.06 -CK-MB%: 1.3, 1.4, 1.2 CK: 386, 350, 329 Nitroglycerin when necessary for chest pain Cardiology consulted, appreciate recommendations -Pharmacological stress test: Pending -Echocardiogram: Normal left ventricular systolic function with estimated EF of 55-60%. Limited left ventricular wall motion assessment due to poor endocardial visualization. Technically difficult due to morbid obesity. Mildly dilated left ventricle. Mild concentric left ventricular hypertrophy. (3) CHF exacerbation ICD Codes: I50.9 - Heart failure, unspecified Status: Acute Plan: Patient with history of CHF presenting with increasing shortness of breath and increasing peripheral edema Chest x-ray: Mild cardiomegaly, no acute abnormality Repeat echocardiogram ordered, previous echo showed an EF of 55-65% with no regional wall abnormalities. (06/2016), see as above BMP: 15 Lasix 40 mg IV given once in ER Incentive spirometer DuoNeb nebs when necessary for shortness of breath (4) Elevated liver enzymes ICD Codes: R74.8 - Elevated liver enzymes Status: Acute Plan: Patient being admitted with elevated AST and ALT complaining of abdominal pain with history of ascites concerning for possible SBP per EMR Complete abdominal ultrasound: Nonspecific splenomegaly, appears to be increased. Enlarged and fatty liver infiltration. Lasix 40 mg IV given once in ER Hepatitis profile ordered (5) Sleep apnea ICD Codes: G47.30 - Sleep apnea Status: Chronic Plan: Patient with history of sleep apnea currently using CPAP machine to sleep , however he does not remember his [place] CPAP ordered (6) Nutrition, metabolism, and development symptoms ICD Codes: R63.8 - Other symptoms and signs concerning food and fluid intake Status: Acute Plan: Diet: Heart healthy diet with 1500 mL fluid restriction and 2 g sodium restriction Fluids: Tolerated by mouth, currently in overload prior exam Electrolytes: Hypokalemia, replaced Prophylaxis: Clonidine when necessary for blood pressure greater than 180/100, DuoNeb when necessary for shortness of breath/wheezing (7) No contraindication to deep vein thrombosis (DVT) prophylaxis ICD Codes: Z78.9 - Other specified health status Status: Acute Plan: Heparin 5000 units every 8 hours SCD/TEDs Problem Qualifiers (1) Alcohol withdrawal: (2) Chest pain: Malachi Aguilera MD R2 Jul 13, 2017 14:33
[2017-07-13] MEDS: LORazepam 1 MG TAB PO PRN ×2 (17:00→21:51)
[2017-07-13] MEDS: cloNIDine HCL 0.1 MG TAB PO PRN (17:00)
[2017-07-13] MEDS ORDERED: THIAMINE INJ 500 MG in SODIUM CHLOR 0.9% 250 ML INJ 500 ML IV SCH (21:00)
[2017-07-14] VITALS (10 sets, daily range): BP systolic 146–186; BP diastolic 65–96; PULSE 76–86; RESP 19–20; TEMP 96.7–98.4; O2SAT 93–98
[2017-07-14] MEDS: HEPARIN SODIUM - SQ 10,000 UNITS/ML VIAL SQ SCH ×3 (05:09→22:12)
[2017-07-14 05:21] LABS: HEMATOCRIT 39.7 % (39.0-51.0); MEAN CELL VOLUME 102.3 FL (80.0-100.0); MEAN CORPUSCULAR HEMOGLOBIN 35.4 PG (27.0-34.0); MEAN CORPUSCULAR HGB CONC 34.6 % (32.0-36.0); PLATELET COUNT 100 TH/MM3 (150-450); RED BLOOD COUNT 3.88 MIL/MM3 (4.50-5.90); RED CELL DISTRIBUTION WIDTH 13.2 % (11.6-17.2); REVIEW FLAG FINAL; WHITE BLOOD COUNT 5.7 TH/MM3 (4.0-11.0)
[2017-07-14 05:43] LABS: BICARBONATE 26.2 MEQ/L (21.0-32.0); POTASSIUM 3.7 MEQ/L (3.5-5.1)
[2017-07-14] MEDS: MULTIVITAMINS/MINERALS THERAPEUTIC TAB PO SCH (08:27)
[2017-07-14] MEDS: FOLIC ACID 1 MG TAB PO SCH (08:27)
[2017-07-14] MEDS: FAMOTIDINE 20 MG TAB PO SCH ×2 (08:27→22:12)
[2017-07-14] MEDS: amLODIPine BESYLATE 5 MG TAB PO SCH (08:27)
[2017-07-14] MEDS: SODIUM CHLORIDE 0.9% FLUSH 10 ML FLUSH IV FLUSH SCH ×2 (08:28→22:13)
[2017-07-14] MEDS: LORazepam 1 MG TAB PO PRN ×2 (08:36→22:17)
--- NOTE | 2017-07-14 10:41 | HHI.FPPN ---
Subjective Remarks Patient seen and examined this morning by medical team. No acute events overnight per nursing staff. Patient remains hypertensive overnight to 180s/100s , but did respond appropriately to Clonidine and Ativan. Patient states this morning that he is "feeling better" and is encouraged by his progress. He does endorse an intermittent tremor throughout the day/night that does respond to the as needed Ativan. He does continue to report chest pressure, however it has improved as well during his hospitalization. He spoke with case management yesterday about the possibility of discharge to [facility] for rehabilitation. Unfortunately they do not have any bed availability, therefore he has decided at discharge to go visit his sister in [place] who can arrange for his rehabilitation. Otherwise he has no complaints and denies any fevers, chills, acute shortness of breath or chest pain, NVD, or abdominal pain. (Malachi Aguilera MD R2) Objective Vitals Vital Signs Date Time Temp Pulse Resp B/P (MAP) Pulse Ox O2 Delivery O2 Flow Rate FiO2 07/14/17 08:00 98.0 84 20 172/76 (108) 94 07/14/17 03:45 98 21 07/14/17 03:37 96.7 76 19 146/65 (92) 94 07/14/17 00:47 98 21 07/13/17 23:36 98.4 74 20 158/76 (103) 94 07/13/17 20:38 97.5 85 21 189/107 (134) 93 07/13/17 16:00 96.7 81 17 183/100 (127) 94 07/13/17 12:00 97.2 72 19 169/80 (109) 95 I/O 07/13/17 07/13/17 07/13/17 07/14/17 07/14/17 07/14/17 07:00 15:00 23:00 07:00 15:00 23:00 Intake Total 425 ml 594 ml 480 ml Output Total 250 ml 850 ml Balance 425 ml 344 ml -370 ml Intake Oral 425 ml 480 ml 480 ml IV Total 114 ml Output Urine Total 250 ml 850 ml # Voids 2 7 2 # Bowel Movements 0 1 1 0 (Malachi Aguilera MD R2) Result Diagram: 07/14/1735007/14/17350 Objective Remarks GENERAL: Morbidly obese male sitting up sitting up on the side of the bed eating breakfast in no acute distress. SKIN: Warm and dry. No obvious rash. HEENT: Atraumatic, normocephalic with EOMI. MMM. Mild scleral injection. No LAD or JVD appreciated. CARDIOVASCULAR: Regular rate and rhythm without obvious murmurs, gallops, or rubs. No S3 appreciated. RESPIRATORY: Diminished breath sounds secondary to body habitus. Poor inspiratory effort. No CRW appreciated. GASTROINTESTINAL: Abdomen protuberant, soft, and nontender with positive bowel sounds. No masses appreciated. MUSCULOSKELETAL: No cyanosis or edema. Strength grossly WNL. NEURO/PSYCH: Afocal. Awake, alert, and oriented x3. Normal speech and judgment. Normal interaction with examiner. (Malachi Aguilera MD R2) A/P Assessment and Plan Mr. Cabrera is a 46 y/o M with a PMHx of alcoholism, CHF, and HTN presents to the ER with chest pain and alcohol withdrawal. Discharge Planning Pending cardiology recommendations for discharge. Discussed with case management the patient's preference to report to [facility] for detox. Unfortunately, [facility] has no availability. Patient states that he will report to [place] for rehabilitation with the assistance of his sister upon his discharge. (Malachi Aguilera MD R2) Assessment and Plan Patient seen and examined. Case reviewed and discussed with the resident team. Agree with the plan of care as discussed with me and documented in the resident note. (Arik Alan MD) Problem List: (1) Alcohol withdrawal ICD Codes: F10.239 - Alcohol dependence with withdrawal, unspecified Status: Acute Plan: Patient with long history of alcohol abuse and prior hospitalization for withdrawal. Currently presenting in withdrawal. Patient admits to drinking 4-5 L of vodka per day. CIWA Ativan per protocol, scores improving Continue to monitor, low threshold to consult director diabetes/transfer to ICU for further monitoring and possible Precedex drip. Librium given once in ER Rally pack ordered (2) Chest pain ICD Codes: R07.9 - Chest pain, unspecified Status: Acute Plan: Patient admitted for acute onset of chest pain with prior history of [place] EKG: Normal sinus rhythm with heart rate of 83. Normal intervals. No signs of ST depression/elevation or bundle sonia block. Per medical team.. Repeat 2 -Troponins: 0.05, 0.06, 0.06 -CK-MB%: 1.3, 1.4, 1.2 CK: 386, 350, 329 Nitroglycerin when necessary for chest pain Cardiology consulted, appreciate recommendations -Pharmacological stress test: Small areas of mild reversibility of the anterior wall and could be a small area of ischemia. Ejection fraction 46%. Risk category intermediate 1-3 annual mortality rate. -Echocardiogram: Normal left ventricular systolic function with estimated EF of 55-60%. Limited left ventricular wall motion assessment due to poor endocardial visualization. Technically difficult due to morbid obesity. Mildly dilated left ventricle. Mild concentric left ventricular hypertrophy. (3) CHF exacerbation ICD Codes: I50.9 - Heart failure, unspecified Status: Acute Plan: Patient with history of CHF presenting with increasing shortness of breath and increasing peripheral edema Chest x-ray: Mild cardiomegaly, no acute abnormality Echocardiogram, See as above. (Previous echo showed an EF of 55-65% with no regional wall abnormalities. (06/2016)) BMP: 15 Lasix 40 mg IV given once in ER Incentive spirometer DuoNeb nebs when necessary for shortness of breath (4) Elevated liver enzymes ICD Codes: R74.8 - Elevated liver enzymes Status: Acute Plan: Patient being admitted with elevated AST and ALT complaining of abdominal pain with history of ascites concerning for possible SBP per EMR Complete abdominal ultrasound: Nonspecific splenomegaly, appears to be increased. Enlarged and fatty liver infiltration. Lasix 40 mg IV given once in ER Hepatitis profile pending (5) Sleep apnea ICD Codes: G47.30 - Sleep apnea Status: Chronic Plan: Patient with history of sleep apnea currently using CPAP machine to sleep , however he does not remember his [place] CPAP ordered (6) Nutrition, metabolism, and development symptoms ICD Codes: R63.8 - Other symptoms and signs concerning food and fluid intake Status: Acute Plan: Diet: Heart healthy diet with 1500 mL fluid restriction and 2 g sodium restriction Fluids: Tolerated by mouth Electrolytes: Within normal limits, continue to monitor Prophylaxis: Clonidine when necessary for blood pressure greater than 180/100, DuoNeb when necessary for shortness of breath/wheezing (7) No contraindication to deep vein thrombosis (DVT) prophylaxis ICD Codes: Z78.9 - Other specified health status Status: Acute Plan: Heparin 5000 units every 8 hours SCD/TEDs (Malachi Aguilera MD R2) Problem Qualifiers (1) Alcohol withdrawal: (2) Chest pain: Malachi Aguilera MD R2 Jul 14, 2017 10:41 Arik Alan MD Jul 14, 2017 16:07
[2017-07-14] MEDS ORDERED: amLODIPine BESYLATE 5 MG TAB PO ONE (11:00)
[2017-07-14] MEDS: METOPROLOL TARTRATE 25 MG TAB PO SCH ×2 (12:03→22:12)
[2017-07-14] MEDS: cloNIDine HCL 0.1 MG TAB PO PRN (18:43)
[2017-07-14] MEDS: THIAMINE INJ 500 MG in SODIUM CHLOR 0.9% 250 ML INJ 250 ML IV SCH (22:13)
[2017-07-15] VITALS (8 sets, daily range): BP systolic 121–163; BP diastolic 62–88; PULSE 59–79; RESP 17–20; TEMP 96.3–97.9; O2SAT 91–97
[2017-07-15] MEDS: HEPARIN SODIUM - SQ 10,000 UNITS/ML VIAL SQ SCH ×3 (05:46→21:53)
[2017-07-15] MEDS: LORazepam 1 MG TAB PO PRN ×2 (05:51→21:52)
[2017-07-15] MEDS ORDERED: AMLO10 PO (06:15)
[2017-07-15] MEDS ORDERED: METO25TA3 PO (06:15)
[2017-07-15] MEDS ORDERED: FAMO20TA2 PO (06:18)
[2017-07-15 07:49] LABS: HEMATOCRIT 38.7 % (39.0-51.0); MEAN CELL VOLUME 102.4 FL (80.0-100.0); MEAN CORPUSCULAR HEMOGLOBIN 35.2 PG (27.0-34.0); MEAN CORPUSCULAR HGB CONC 34.4 % (32.0-36.0); PLATELET COUNT 109 TH/MM3 (150-450); RED BLOOD COUNT 3.78 MIL/MM3 (4.50-5.90); RED CELL DISTRIBUTION WIDTH 13.1 % (11.6-17.2); REVIEW FLAG FINAL; WHITE BLOOD COUNT 4.9 TH/MM3 (4.0-11.0)
[2017-07-15 08:15] LABS: BICARBONATE 26.3 MEQ/L (21.0-32.0); POTASSIUM 3.7 MEQ/L (3.5-5.1)
[2017-07-15] MEDS: METOPROLOL TARTRATE 25 MG TAB PO SCH ×2 (08:40→21:52)
[2017-07-15] MEDS: FOLIC ACID 1 MG TAB PO SCH (08:40)
[2017-07-15] MEDS: MULTIVITAMINS/MINERALS THERAPEUTIC TAB PO SCH (08:40)
[2017-07-15] MEDS: amLODIPine BESYLATE 5 MG TAB PO SCH (08:40)
[2017-07-15] MEDS: FAMOTIDINE 20 MG TAB PO SCH ×2 (08:40→21:52)
[2017-07-15] MEDS: SODIUM CHLORIDE 0.9% FLUSH 10 ML FLUSH IV FLUSH SCH ×2 (08:43→21:53)
[2017-07-15] MEDS ORDERED: ASPI81CH37 CHEW (11:04)
--- NOTE | 2017-07-15 11:05 | HHI.FPPN ---
Subjective Remarks Patient seen and examined this morning by medical team. No acute events overnight per nursing staff. Patient remains hypertensive to 180s/90s yesterday , however blood pressure has improved throughout the night and is currently 121/ 63. Patient states that he still has an intermittent mild tremor of his lower extremities, but feels "much better" since his admission. He is encouraged by his progress and looks forward to going to [place] to start his rehabilitation. He has no other complaints and denies any fevers, chills, shortness of breath, acute chest pain, NVD, abdominal pain, or calf tenderness. (Malachi Aguilera MD R2) Objective Vitals Vital Signs Date Time Temp Pulse Resp B/P (MAP) Pulse Ox O2 Delivery O2 Flow Rate FiO2 07/15/17 08:00 97.5 70 18 121/63 (82) 91 07/15/17 04:45 97.1 59 20 141/74 (96) 95 07/15/17 01:45 97 21 07/15/17 00:01 97.9 71 19 153/88 (109) 95 07/14/17 21:13 93 21 07/14/17 20:20 97.2 76 19 186/90 (122) 95 07/14/17 18:06 77 07/14/17 16:00 97.9 77 19 186/92 (123) 96 07/14/17 12:04 96 BiPAP 21 07/14/17 12:00 98.4 86 20 177/96 (123) 95 I/O 07/14/17 07/14/17 07/14/17 07/15/17 07/15/17 07/15/17 06:59 14:59 22:59 06:59 14:59 22:59 Intake Total 480 ml 1200 ml 240 ml Output Total 850 ml Balance -370 ml 1200 ml 240 ml Intake Oral 480 ml 1200 ml 240 ml Output Urine Total 850 ml # Voids 7 2 # Bowel Movements 0 1 0 (Malachi Aguilera MD R2) Result Diagram: 07/15/17 0655 07/15/17 0730 Objective Remarks GENERAL: Morbidly obese male sitting up sitting up in his chair watching TV in no acute distress. SKIN: Warm and dry. No obvious rash. HEENT: Atraumatic, normocephalic with EOMI. MMM. No LAD or JVD appreciated. CARDIOVASCULAR: Regular rate and rhythm without obvious murmurs, gallops, or rubs. No S3 appreciated. RESPIRATORY: Diminished breath sounds secondary to body habitus. Poor inspiratory effort. No CRW appreciated. GASTROINTESTINAL: Abdomen protuberant, soft, and nontender with positive bowel sounds. No masses appreciated. MUSCULOSKELETAL: No cyanosis or edema. Strength grossly WNL. NEURO/PSYCH: Afocal. Awake, alert, and oriented x3. Normal speech and judgment. Normal interaction with examiners. (Malachi Aguilera MD R2) A/P Assessment and Plan Mr. Cabrera is a 46 y/o M with a PMHx of alcoholism, CHF, and HTN presents to the ER with chest pain and alcohol withdrawal. Discharge Planning Pending cardiology recommendations for discharge. Discussed with case management the patient's preference to report to [facility] for detox. Unfortunately, [facility] has no availability. Patient states that he will report to [place] for rehabilitation with the assistance of his sister upon his discharge. (Malachi Aguilera MD R2) Attending Attestation Patient seen and examined. Case reviewed and discussed with the resident team. Agree with plan of care as discussed with me and documented in the resident note. Discussed with him that he had an 11 beat run of V tach today. He has been up walking in the [place] more. He has a history of 6 months of chest pressure and SOB with exertion at a particular distance. Explained that he could have CAD and most likely does have this. He is evidently 400 lbs and not a cath candidate with his weight and other problems. Explained he will be treated medically and he needs to go [facility] to a hospital if his chest pressure lasts longer than the 5-10 minutes. Will keep him overnight and observe and encouraged to walk and be sure he would not have problems with exertion on his new antianginal meds. (Kala Mcintyre MD) Problem List: (1) Alcohol withdrawal ICD Codes: F10.239 - Alcohol dependence with withdrawal, unspecified Status: Acute Plan: Patient with long history of alcohol abuse and prior hospitalization for withdrawal. Currently presenting in withdrawal. Patient admits to drinking 4-5 L of vodka per day. CIWA Ativan per protocol, scores improving Continue to monitor, low threshold to consult director school of nursing/transfer to ICU for further monitoring and possible Precedex drip. Librium given once in ER Rally pack ordered -Medical team to consider discharging patient with a one-time dose of Librium in order to self taper him from CIWA Ativan (2) Chest pain ICD Codes: R07.9 - Chest pain, unspecified Status: Acute Plan: Patient admitted for acute onset of chest pain with prior history of [place] EKG: Normal sinus rhythm with heart rate of 83. Normal intervals. No signs of ST depression/elevation or bundle sonia block. Per medical team.. Repeat 2 -Troponins: 0.05, 0.06, 0.06 -CK-MB%: 1.3, 1.4, 1.2 CK: 386, 350, 329 -Lipid panel: Pending Nitroglycerin when necessary for chest pain Cardiology consulted, appreciate recommendations -Pharmacological stress test: Small areas of mild reversibility of the anterior wall and could be a small area of ischemia. Ejection fraction 46%. Risk category intermediate 1-3 annual mortality rate. -Echocardiogram: Normal left ventricular systolic function with estimated EF of 55-60%. Limited left ventricular wall motion assessment due to poor endocardial visualization. Technically difficult due to morbid obesity. Mildly dilated left ventricle. Mild concentric left ventricular hypertrophy. Medications: -Amlodipine 10 mg daily -Metoprolol 25 mg twice a day -Aspirin 81 mg daily -Clonidine 0.1 mg every 6 hours when necessary for blood pressure greater than 180/100 (3) CHF exacerbation ICD Codes: I50.9 - Heart failure, unspecified Status: Acute Plan: Patient with history of CHF presenting with increasing shortness of breath and increasing peripheral edema Chest x-ray: Mild cardiomegaly, no acute abnormality Echocardiogram, See as above. (Previous echo showed an EF of 55-65% with no regional wall abnormalities. (06/2016)) BMP: 15 Lasix 40 mg IV given once in ER Incentive spirometer DuoNeb nebs when necessary for shortness of breath (4) Elevated liver enzymes ICD Codes: R74.8 - Elevated liver enzymes Status: Acute Plan: Patient being admitted with elevated AST and ALT complaining of abdominal pain with history of ascites concerning for possible SBP per EMR Complete abdominal ultrasound: Nonspecific splenomegaly, appears to be increased. Enlarged and fatty liver infiltration. Lasix 40 mg IV given once in ER Hepatitis profile pending (5) Sleep apnea ICD Codes: G47.30 - Sleep apnea Status: Chronic Plan: Patient with history of sleep apnea currently using CPAP machine to sleep , however he does not remember his [place] CPAP ordered (6) Nutrition, metabolism, and development symptoms ICD Codes: R63.8 - Other symptoms and signs concerning food and fluid intake Status: Acute Plan: Diet: Heart healthy diet with 1500 mL fluid restriction and 2 g sodium restriction Fluids: Tolerated by mouth Electrolytes: Within normal limits, continue to monitor Prophylaxis: Clonidine when necessary for blood pressure greater than 180/100, DuoNeb when necessary for shortness of breath/wheezing (7) No contraindication to deep vein thrombosis (DVT) prophylaxis ICD Codes: Z78.9 - Other specified health status Status: Acute Plan: Heparin 5000 units every 8 hours SCD/TEDs (Malachi Aguilera MD R2) Problem Qualifiers (1) Alcohol withdrawal: (2) Chest pain: Malachi Aguilera MD R2 Jul 15, 2017 11:05 Kala Mcintyre MD Jul 15, 2017 16:26
[2017-07-15] MEDS ORDERED: LIPI10TA PO (12:12)
[2017-07-15 13:00] LABS: HDL CHOLESTEROL 34.8 MG/DL (40.0-60.0)
[2017-07-15] MEDS ORDERED: NITR400A5 SL (16:14)
[2017-07-15] MEDS: THIAMINE INJ 500 MG in SODIUM CHLOR 0.9% 250 ML INJ 250 ML IV SCH (21:53)
[2017-07-16] VITALS (8 sets, daily range): BP systolic 121–185; BP diastolic 68–94; PULSE 63–73; RESP 18; TEMP 97–98.3; O2SAT 94–98
[2017-07-16] MEDS: HEPARIN SODIUM - SQ 10,000 UNITS/ML VIAL SQ SCH ×2 (05:12→12:36)
[2017-07-16 08:14] LABS: HEMATOCRIT 38.7 % (39.0-51.0); MEAN CELL VOLUME 103.6 FL (80.0-100.0); MEAN CORPUSCULAR HEMOGLOBIN 35.6 PG (27.0-34.0); MEAN CORPUSCULAR HGB CONC 34.4 % (32.0-36.0); PLATELET COUNT 102 TH/MM3 (150-450); RED BLOOD COUNT 3.74 MIL/MM3 (4.50-5.90); RED CELL DISTRIBUTION WIDTH 13.3 % (11.6-17.2); REVIEW FLAG FINAL; WHITE BLOOD COUNT 4.5 TH/MM3 (4.0-11.0)
[2017-07-16 08:39] LABS: BICARBONATE 27.7 MEQ/L (21.0-32.0); POTASSIUM 3.7 MEQ/L (3.5-5.1)
[2017-07-16] MEDS: METOPROLOL TARTRATE 25 MG TAB PO SCH (09:54)
[2017-07-16] MEDS: FAMOTIDINE 20 MG TAB PO SCH (09:54)
[2017-07-16] MEDS: FOLIC ACID 1 MG TAB PO SCH (09:54)
[2017-07-16] MEDS: amLODIPine BESYLATE 5 MG TAB PO SCH (09:54)
[2017-07-16] MEDS: MULTIVITAMINS/MINERALS THERAPEUTIC TAB PO SCH (09:54)
[2017-07-16] MEDS: SODIUM CHLORIDE 0.9% FLUSH 10 ML FLUSH IV FLUSH SCH (10:02)
[2017-07-16] MEDS ORDERED: ISOS30TA3 PO (11:38)
[2017-07-16] MEDS ORDERED: ISOSORBIDE MONONITRATE 30 MG TAB PO SCH (11:45)
--- NOTE | 2017-07-16 14:07 | HHI.FPPN ---
Subjective Remarks Patient seen and examined bedside. Patient noted acute distress. Patient walked around the room a lot last night and felt his regular shortness of breath but nothing acute. Patient did not feel any chest pain or chest pressure while walking around the room. We walks with the patient down the hallway and he felt some mild chest pressure on the way back. This appears to be the stable angina he has had for the last 6 months. This angina has been unchanging and is not worsening. Patient can continue to walk through the mild pressure and breath and converse. Patient denies any fever/chills overnight. Vision denies any chest pain/dizziness. Patient is greatly looking forward to going home so that he can pack up and make his way to [place] where he will have his rehabilitation. A relative will be driving him to [place], not himself (Hien Pichardo MD R2) Objective Vitals Vital Signs Date Time Temp Pulse Resp B/P (MAP) Pulse Ox O2 Delivery O2 Flow Rate FiO2 07/16/17 12:00 97.6 68 18 162/81 (108) 94 07/16/17 10:08 65 07/16/17 08:00 97.9 73 18 153/73 (99) 94 07/16/17 04:56 96 07/16/17 04:35 97.6 65 18 121/68 (85) 98 07/16/17 01:57 96 21 07/16/17 00:45 98.3 70 18 185/94 (124) 94 07/15/17 21:15 96.3 79 17 163/73 (103) 93 07/15/17 20:51 95 21 I/O 07/15/17 07/15/17 07/15/17 07/16/17 07/16/17 07/16/17 07:00 15:00 23:00 07:00 15:00 23:00 Intake Total 240 ml 1680 ml 480 ml Output Total 450 ml Balance 240 ml 1680 ml 30 ml Intake Oral 240 ml 1680 ml 480 ml Output Urine Total 450 ml # Voids 2 7 1 # Bowel Movements 0 1 0 (Hien Pichardo MD R2) Result Diagram: 07/16/17 0729 07/16/17 07 Objective Remarks GENERAL: Morbidly obese male sitting up sitting up in his chair watching TV in no acute distress. SKIN: Warm and dry. No obvious rash. HEENT: Atraumatic, normocephalic with EOMI. MMM. No LAD or JVD appreciated. CARDIOVASCULAR: Regular rate and rhythm without obvious murmurs, gallops, or rubs. No S3 appreciated. RESPIRATORY: Diminished breath sounds secondary to body habitus. Poor inspiratory effort. No CRW appreciated. GASTROINTESTINAL: Abdomen protuberant, soft, and nontender with positive bowel sounds. No masses appreciated. MUSCULOSKELETAL: No cyanosis or edema. Strength grossly WNL. NEURO/PSYCH: Afocal. Awake, alert, and oriented x3. Normal speech and judgment. Normal interaction with examiners. WALKING: pt can walk 50 steps without having to stop. he does begin to feel mild chest pressure and shortness of breath after 25 steps. However, this is unchanged from before. (Hien Pihcardo MD R2) A/P Assessment and Plan Mr. Cabrera is a 46 y/o M with a PMHx of alcoholism, CHF, and HTN presents to the ER with chest pain and alcohol withdrawal. Discharge Planning Pending cardiology recommendations for discharge. Discussed with case management the patient's preference to report to [facility] for detox. Unfortunately, [facility] has no availability. Patient states that he will report to [place] for rehabilitation with the assistance of his sister upon his discharge. (Hien Pichardo MD R2) Attending Attestation Patient seen and examined. Case reviewed and discussed with the resident team. Agree with plan of care as discussed with me and documented in the resident note. explained to him yesterday that he has CAD and stable angina. advised him to go to the ED if his pain persists or worsens or changes pattern. agree with starting anti anginals as he is not a candidate for cath at this time per Cardiology with his alcohol abuse and current weight so will treat medcially and encouraged him to see a Dr in [place]. he has no signs of alcohol withdrawal at all today (Kala Mcintyre MD) Problem List: (1) Alcohol withdrawal ICD Codes: F10.239 - Alcohol dependence with withdrawal, unspecified Status: Acute Plan: Patient with long history of alcohol abuse and prior hospitalization for withdrawal. Patient admits to drinking 4-5 L of vodka per day. Librium given once in ER, Librium once given on 07/15 to taper himself from CIWA protocol (2) Chest pain ICD Codes: R07.9 - Chest pain, unspecified Status: Chronic Plan: Patient admitted for acute onset of chest pain with prior history of [place]. Upon history taking it is evident the patient has stable angina EKG: Normal sinus rhythm with heart rate of 83. Normal intervals. No signs of ST depression/elevation or bundle sonia block. Per medical team.. Repeat 2 -Troponins: 0.05, 0.06, 0.06 -CK-MB%: 1.3, 1.4, 1.2 CK: 386, 350, 329 -Lipid panel: Pending Nitroglycerin when necessary for chest pain Cardiology consulted, acknowledges stable angina, appreciate recommendations -Pharmacological stress test: Small areas of mild reversibility of the anterior wall and could be a small area of ischemia. Ejection fraction 46%. Risk category intermediate 1-3 annual mortality rate. -Echocardiogram: Normal left ventricular systolic function with estimated EF of 55-60%. Limited left ventricular wall motion assessment due to poor endocardial visualization. Technically difficult due to morbid obesity. Mildly dilated left ventricle. Mild concentric left ventricular hypertrophy. - Cardio recommends medical management of stable angina due to morbid obesity of patient and technical difficulty of coronary catheterization - Patient has been given copy of all his records; including admission, cardiac consult. Patient is to follow up with a PCP at his new home in [place] Medications: -Amlodipine 10 mg daily -Metoprolol 25 mg twice a day -Aspirin 81 mg daily - Isosorbide Mononitrate ER 30mg - DAILY TO PREVENT CHEST PAIN -nitroglycerin spray PRN for angina (3) CHF exacerbation ICD Codes: I50.9 - Heart failure, unspecified Status: Acute Plan: Patient with history of CHF presenting with increasing shortness of breath and increasing peripheral edema Chest x-ray: Mild cardiomegaly, no acute abnormality Echocardiogram, See as above. (Previous echo showed an EF of 55-65% with no regional wall abnormalities. (06/2016)) BMP: 15 Lasix 40 mg IV given once in ER Incentive spirometer DuoNeb nebs when necessary for shortness of breath (4) Elevated liver enzymes ICD Codes: R74.8 - Elevated liver enzymes Status: Resolved Plan: Patient being admitted with elevated AST and ALT complaining of abdominal pain with history of ascites concerning for possible SBP per EMR - LFTs have trended down to normal Complete abdominal ultrasound: Nonspecific splenomegaly, appears to be increased. Enlarged and fatty liver infiltration. Lasix 40 mg IV given once in ER Hepatitis profile: Negative (5) Sleep apnea ICD Codes: G47.30 - Sleep apnea Status: Chronic Plan: Patient with history of sleep apnea currently using CPAP machine to sleep , however he does not remember his [place] CPAP ordered (6) Nutrition, metabolism, and development symptoms ICD Codes: R63.8 - Other symptoms and signs concerning food and fluid intake Status: Acute Plan: Diet: Heart healthy diet with 1500 mL fluid restriction and 2 g sodium restriction Fluids: Tolerated by mouth Electrolytes: Within normal limits, continue to monitor Prophylaxis: Clonidine when necessary for blood pressure greater than 180/100, DuoNeb when necessary for shortness of breath/wheezing (7) No contraindication to deep vein thrombosis (DVT) prophylaxis ICD Codes: Z78.9 - Other specified health status Status: Acute Plan: Heparin 5000 units every 8 hours SCD/TEDs (Hien Pichardo MD R2) Problem Qualifiers (1) Alcohol withdrawal: (2) Chest pain: Hien Pichardo MD R2 Jul 16, 2017 14:07 Kala Mcintyre MD Jul 16, 2017 16:23
--- NOTE | 2017-07-16 16:25 | HHI.DS ---
Discharge Summary Admission Date Jul 11, 2017 at 18:42 Discharge Date: Jul 16, 2017 Admitting Diagnosis chest pain, alcohol withdrawal symptoms (1) Alcohol withdrawal Diagnosis: Principal Plan: Patient with long history of alcohol abuse and prior hospitalization for withdrawal. Patient admits to drinking 4-5 L of vodka per day. Librium given once in ER, Librium once given on 07/15 to taper himself from CIWA protocol ICD Codes: F10.239 - Alcohol dependence with withdrawal, unspecified Status: Acute (2) Chest pain Diagnosis: Principal Plan: Patient admitted for acute onset of chest pain with prior history of ND. Upon history taking it is evident the patient has stable angina EKG: Normal sinus rhythm with heart rate of 83. Normal intervals. No signs of ST depression/elevation or bundle sonia block. Per medical team.. Repeat 2 -Troponins: 0.05, 0.06, 0.06 -CK-MB%: 1.3, 1.4, 1.2 CK: 386, 350, 329 -Lipid panel: Pending Nitroglycerin when necessary for chest pain Cardiology consulted, acknowledges stable angina, appreciate recommendations -Pharmacological stress test: Small areas of mild reversibility of the anterior wall and could be a small area of ischemia. Ejection fraction 46%. Risk category intermediate 1-3 annual mortality rate. -Echocardiogram: Normal left ventricular systolic function with estimated EF of 55-60%. Limited left ventricular wall motion assessment due to poor endocardial visualization. Technically difficult due to morbid obesity. Mildly dilated left ventricle. Mild concentric left ventricular hypertrophy. - Cardio recommends medical management of stable angina due to morbid obesity of patient and technical difficulty of coronary catheterization - Patient has been given copy of all his records; including admission, cardiac consult. Patient is to follow up with a PCP at his new home in [place] Medications: -Amlodipine 10 mg daily -Metoprolol 25 mg twice a day -Aspirin 81 mg daily - Isosorbide Mononitrate ER 30mg - DAILY TO PREVENT CHEST PAIN -nitroglycerin spray PRN for angina ICD Codes: R07.9 - Chest pain, unspecified Status: Chronic (3) CHF exacerbation Diagnosis: Principal Plan: Patient with history of CHF presenting with increasing shortness of breath and increasing peripheral edema Chest x-ray: Mild cardiomegaly, no acute abnormality Echocardiogram, See as above. (Previous echo showed an EF of 55-65% with no regional wall abnormalities. (06/2016)) BMP: 15 Lasix 40 mg IV given once in ER Incentive spirometer DuoNeb nebs when necessary for shortness of breath ICD Codes: I50.9 - Heart failure, unspecified Status: Acute (4) Elevated liver enzymes Diagnosis: Principal Plan: Patient being admitted with elevated AST and ALT complaining of abdominal pain with history of ascites concerning for possible SBP per EMR - LFTs have trended down to normal Complete abdominal ultrasound: Nonspecific splenomegaly, appears to be increased. Enlarged and fatty liver infiltration. Lasix 40 mg IV given once in ER Hepatitis profile: Negative ICD Codes: R74.8 - Elevated liver enzymes Status: Resolved (5) Sleep apnea Diagnosis: Secondary Plan: Patient with history of sleep apnea currently using CPAP machine to sleep , however he does not remember his [place] CPAP ordered ICD Codes: G47.30 - Sleep apnea Status: Chronic (6) Nutrition, metabolism, and development symptoms Diagnosis: Secondary Plan: Diet: Heart healthy diet with 1500 mL fluid restriction and 2 g sodium restriction Fluids: Tolerated by mouth Electrolytes: Within normal limits, continue to monitor Prophylaxis: Clonidine when necessary for blood pressure greater than 180/100, DuoNeb when necessary for shortness of breath/wheezing ICD Codes: R63.8 - Other symptoms and signs concerning food and fluid intake Status: Acute (7) No contraindication to deep vein thrombosis (DVT) prophylaxis Diagnosis: Secondary Plan: Heparin 5000 units every 8 hours SCD/TEDs ICD Codes: Z78.9 - Other specified health status Status: Acute Consultants Cardiology Procedures Myocardial perfusion scan Brief History Mr. Cabrera is a 46 y/o M with a PMHx of alcoholism, CHF, and HTN presents to the ER with chest pain. He states that the pain has been throbbing since this morning and rates the pain at an 8/10 on the pain scale. He reports that he has had a "mild heart attack," but the pain today is much worse. The pain is primarily located on the left side and feels like a "throbbing pressure." He endorses some blurry vision, headaches, dizziness, and intermittent palpitations. Of note he has an extensive alcohol abuse history including a hospitalization of approximately 2 months due to severe alcohol withdrawal. During his hospitalization he suffered a tonic-clonic seizures and required intubation/tracheotomy due to respiratory failure during his withdrawal. Currently he reports that he drinks 4-5 L of vodka or 99 proof alcohol per day. Today he has had approximately 3/4 of a pint of vodka prior to presenting to the emergency department. Patient states that he is worried that he is going into withdrawal now and knows that his anger control can become a problem when he withdraws from alcohol. His only other complaint is shortness of breath which he states started approximately 8 months ago. His shortness of breath is exacerbated by exertion and is so debilitating he has not been leaving his house for at least 6 months. Over this time he states that he has had a productive cough with white sputum and occasional red/brown specks of blood. He does use a CPAP machine at night, however he is unaware of his settings. Otherwise he has no complaints and denies any fevers, chills, shortness of breath, chest pain, NVD, abdominal pain, or calf tenderness. CBC/BMP: 07/16/17 0729 07/16/17 0729 Significant Findings Laboratory Tests Test 07/14/17 03:51 07/15/17 06:55 07/15/17 07:30 07/16/17 07:29 Red Blood Count 3.88 MIL/MM3 (4.50-5.90) 3.78 MIL/MM3 (4.50-5.90) 3.74 MIL/MM3 (4.50-5.90) Mean Corpuscular Volume 102.3 FL (80.0-100.0) 102.4 FL (80.0-100.0) 103.6 FL (80.0-100.0) Mean Corpuscular Hemoglobin 35.4 PG (27.0-34.0) 35.2 PG (27.0-34.0) 35.6 PG (27.0-34.0) Platelet Count 100 TH/MM3 (150-450) 109 TH/MM3 (150-450) 102 TH/MM3 (150-450) Hematocrit 38.7 % (39.0-51.0) 38.7 % (39.0-51.0) LDL Cholesterol 125 MG/DL (0-99) HDL Cholesterol 34.8 MG/DL (40.0-60.0) PE at Discharge GENERAL: Morbidly obese male sitting up sitting up in his chair watching TV in no acute distress. SKIN: Warm and dry. No obvious rash. HEENT: Atraumatic, normocephalic with EOMI. MMM. No LAD or JVD appreciated. CARDIOVASCULAR: Regular rate and rhythm without obvious murmurs, gallops, or rubs. No S3 appreciated. RESPIRATORY: Diminished breath sounds secondary to body habitus. Poor inspiratory effort. No CRW appreciated. GASTROINTESTINAL: Abdomen protuberant, soft, and nontender with positive bowel sounds. No masses appreciated. MUSCULOSKELETAL: No cyanosis or edema. Strength grossly WNL. NEURO/PSYCH: Afocal. Awake, alert, and oriented x3. Normal speech and judgment. Normal interaction with examiners. WALKING: pt can walk 50 steps without having to stop. he does begin to feel mild chest pressure and shortness of breath after 25 steps. However, this is unchanged from before. Hospital Course 46 year old male with a past history of alcoholism, CHF, and hypertension presented to the ED with chest pain. The pain was described as being on the left side and feeling like a throbbing pressure. He has an extensive alcohol abuse history including an admission 2 months ago due to severe alcohol withdrawal that resulted in an withdrawal seizure, and required intubation and tracheotomy during that admission. He also presented with shortness of breath that is exacerbated by exertion that has been present for the past 6 months. He also presented with productive cough with white sputum with occasional streaking of blood. He was admitted to the hospital and placed on CIWA protocol and given Ativan as needed for withdrawals. He was also given multivitamin, thiamine, and folic acid. For the chest pain he had an EKG showing normal sinus rhythm with no ST depression or elevation. CK-MB was mildly elevated but troponins remained flat with trending. He was also found to be in acute CHF exacerbation. He has mild cardiomegaly on chest x-ray. He improved with one time dose of IV Lasix. Alcohol withdrawal symptoms stabilized and he had no seizures or delirium tremens while in the hospital. His highest CIWA score was 11 and it was 0 by the time of discharge. For his chest pain and mildly elevated CK-MB cardiology was consulted. They suggested stable angina. A pharmacological stress test was performed and showed small areas of mild reversibility of the anterior wall that could be due to small area of ischemia. Risk category was intermediate with 1-3% annual mortality rate. ECHO done showed EF of 55-60 although it was a difficult study due to morbid obesity. It also showed mildly dilated left ventricle and mild concentric left ventricular hypertrophy. Cardiology recommended medical management of his stable angina due to the technical difficulty of performing a coronary catheterization. Medications started include amlodipine 10 mg daily, metoprolol 25 mg bid, aspirin 81 mg daily, nitroglycerin spry PRN for angina, and isosorbide mononitrate ER 30 mg daily. He is heading back to [place], so copies of his medical admission paperwork were provided to him to take to his PCP in [place]. Encouraged him to take all medications as prescribed and follow up with his PCP within the week. Discussed reasons that would precipitate returning to the hospital, such as new or evolving chest pain or lightheadedness. Pt Condition on Discharge: Fair Discharge Disposition: Discharge Home Discharge Instructions DIET: Follow Instructions for: Heart Healthy Diet Activities you can perform: Regular-No Restrictions Follow up Referrals: PCP Follow-up - 1 Week New Orders: COMP MET PROF (CMP) - 1 Week CREATININE KINASE - 1 Week New Medications: Aspirin (Aspirin Low Dose) 81 Mg Chew 81 MG CHEW DAILY, #30 TAB 1 Refill Atorvastatin (Lipitor) 10 Mg Tab 10 MG PO HS for Cholesterol Management, #30 TAB 0 Refills Isosorbide Mononitrate ER (Isosorbide Mononitrate ER) 30 Mg Kelin 30 MG PO DAILY for Prevent Chest Pain, #30 TAB 0 Refills Nitroglycerin Lingual [place] (Nitroglycerin Lingual [place]) 400 Mcg/Act [place] 1 SPRAY SL DIRECTED, #1 CONTAINER 0 Refills ONE SPRAY NEEDED FOR CHEST PAIN, MAY REPEAT EVERY FIVE MINUTES FOR A TOTAL OF 3 DOSES OR CALL 911 IF NO RELIEF Famotidine (Famotidine) 20 Mg Tab 20 MG PO BID, #60 TAB 1 Refill Metoprolol Tartrate (Metoprolol Tartrate) 25 Mg Tab 25 MG PO Q12HR, #60 TAB 1 Refill Continued Medications: Amlodipine (Norvasc) 10 Mg Tab 10 MG PO DAILY for Blood Pressure Management, #30 TAB 1 Refill (This prescription has been renewed) Discontinued Medications: Furosemide (Furosemide) 40 Mg Tab 40 MG PO DAILY, #30 TAB 0 Refills Pantoprazole (Pantoprazole) 40 Mg Tab 40 MG PO DAILY PRN for INDIGESTION, #30 TAB 0 Refills Julius Cortes MD R3 Jul 16, 2017 16:25
[2017-07-17] MEDS ORDERED: NITR1SUB2 SL ×2 (10:27)
[2017-07-18] MEDS ORDERED: THIAMINE HCL 100 MG TAB PO SCH (09:00)
--- NOTE | 2017-07-24 13:08 | PQ ---
Physician Query Response Document PATIENT: JESÚS FARR : 1970 ADMIT DATE: 07/11/2017 6:42 PM DISCH DATE: 07/16/2017 5:42 PM RESPONDING PROVIDER #: Brandi QUERY TEXT: CHF Acuity and Type Congestive Heart Failure is documented in the Medical Record. Please document the type and acuity (in cludes probable or suspected) Such as: Type: -- Systolic -- Diastolic -- Combined -- Other, please specify Also please document the underlying cause of the CHF (includes probable or suspected) If you have any additional questions/comments and/or concerns, please do not hesitate to reach out to the CDI/Coding Hotline, Ext. [phone]. The patient's Clinical Indicators include: Discharge Summary under Hospital Course documents: He was also found to be in acute CHF exacerbation . He has mild cardiomegaly on chest x-ray. He improved with one time dose of IV Lasix. Discharge Summary under Plan documents: -Pharmacological stress test: Small areas of mild reversibil ity of the anterior wall and could be a small area of ischemia. Ejection fraction 46%. Risk category intermediate 1-3 annual mortality rate. -Echocardiogram: Normal left ventricular systolic function with estimated EF of 55-60%. Limited left ventricular wall motion assessment due to poor endocardial visualization. Query created by: Meryl Leiva on 07/18/2017 3:58 PM RESPONSE TEXT: His EF was 45% so he has systolic HTN. His underlying cause could be CAD. This was an acute event for his CHF worsening. Electronically signed by: Kala Mcintyre MD 07/21/2017 12:59 PM
== END 2017-07-16 17:42 | disposition home or self-care (01) | DRG 292 ==
LOC: NEPC 13:09 → NEDA 18:12 → OBSVTOIN 18:42 → N06A 22:22 → N06B 22:35 → N06A 22:35
PROVIDERS: ADMIT Family Medicine; ATTEND Family Medicine
DX: I50.23 Acute on chronic systolic (congestive) heart failure (principal); F10.230 Alcohol dependence with withdrawal, uncomplicated; Z68.43 Body mass index [BMI] 50.0-59.9, adult; K76.0 Fatty (change of) liver, not elsewhere classified; E66.01 Morbid (severe) obesity due to excess calories; I20.8 Other forms of angina pectoris; I25.2 Old myocardial infarction; R74.8 Abnormal levels of other serum enzymes; G47.33 Obstructive sleep apnea (adult) (pediatric); I10 Essential (primary) hypertension; E87.6 Hypokalemia; Z91.19 Patient's noncompliance with other medical treatment and regimen; Y90.6 Blood alcohol level of 120-199 mg/100 ml
CPT/HCPCS: 71010; 76700; 78452; 80048; 80053; 80061; 80074; 80307; 82550; 82552; 83690; 83735; 83880; 84484; 85025; 85027; 85610; 85730; 93005; 93017; 93306; 94003; 94150; 96374; 96375; A9502; C9113; J1644; J1940; J2060; J2405; J2785; J3411; J7050